=== PATIENT | male | born 1985 | race Caucasian/White ===

== ENCOUNTER 2021-02-12 07:19 | Emergency (ER) | payer OTHER ==
[~2021-02-12] VITALS: Ht 180.3 cm; Wt 93.0 kg
[~2021-02-12 07:19] MED LIST: ADVAIR HFA 1112 UNIT PO; ALBUTEROL INH PO; AZITHROMYCIN 2250 MG PO; CORTISPORIN OTI10 M2 OTIC; HYDROCODONE-AP1 EAC6 PO; MUCINEX TA600 MG/TA1 PO; NICOTINE TRANSD21 M1; PREDNISONE 5 MG5 M1 PO; SINGULAIR 10 MG10 M1 PO
[2021-02-12] MEDS ORDERED: NORCO 10-325 T1 EACH PO (08:49)
[2021-02-12 09:12] VITALS: BP 122/79
[2021-02-15] MEDS ORDERED: ENDOCET 7.5-321 EACH PO (10:47)
== END 2021-02-12 09:14 | disposition home or self-care (01) ==
LOC: ER 07:19
DX: S82.392A Other fracture of lower end of left tibia, initial encounter for closed fracture (principal); F17.210 Nicotine dependence, cigarettes, uncomplicated; Z90.49 Acquired absence of other specified parts of digestive tract; W10.8XXA Fall (on) (from) other stairs and steps, initial encounter; Y93.89 Activity, other specified; Y92.89 Other specified places as the place of occurrence of the external cause; Y99.8 Other external cause status